=== PATIENT | male | born 1990 | race Caucasian/White ===

== ENCOUNTER 2021-08-15 16:10 | Emergency (ER) | payer SELFPAY ==
[~2021-08-15] VITALS: Ht 172.7 cm; Wt 93.0 kg
[2021-08-15] MEDS ORDERED: ONDANSETRON 4MG ODT PO ONE (17:30)
[2021-08-15] MEDS ORDERED: HYDROCODONE/ACETAMINOPHEN 5/325MG TABLET PO ONE (17:30)
[2021-08-15] MEDS ORDERED: HYDR-4001 MT (19:52)
[2021-08-15] MEDS ORDERED: IBUP-2030 MT (19:52)
[2021-08-15 20:12] VITALS: BP 131/94
== END 2021-08-15 20:14 | disposition home or self-care (01) ==
LOC: ER 16:10
DX: S09.8XXA Other specified injuries of head, initial encounter (principal); S62.646A Nondisplaced fracture of proximal phalanx of right little finger, initial encounter for closed fracture; S99.811A Other specified injuries of right ankle, initial encounter; S69.82XA Other specified injuries of left wrist, hand and finger(s), initial encounter; V23.4XXA Motorcycle driver injured in collision with car, pick-up truck or van in traffic accident, initial encounter; Y93.89 Activity, other specified; Y92.411 Interstate highway as the place of occurrence of the external cause
CPT/HCPCS: 29130; 70450; 71045; 72125; 73110; 73140; 73610; 76705; 99285; Q0162